=== PATIENT | male | born 1985 | race Caucasian/White ===

== ENCOUNTER 2024-10-21 09:45 | Inpatient (IN) | payer BC, SELFPAY ==
--- NOTE | ~2024-10-21 | CT_ITS ---
Clinical indication:Left elbow swelling, erythema and warmth following a course of IV antibiotics COMPARISON:None TECHNIQUE: Multiple contiguous axial images of the left elbow were performed following the administra tion of intravenous contrast. FINDINGS: A rim-enhancing fluid collection is identified within the soft tissues of the dorsal surface of the l eft elbow (within the expected area of the olecranon bursa) measuring 5.6 x 4.3 x 5.4 cm (anterior to posterior x medial to lateral x cranial to caudal dimension). Significant soft tissue swelling is also noted. No acute fracture or bony erosion is identified. IMPRESSION: Rim-enhancing fluid collection within the expected region of the olecranon bursa of the left elbow me asuring 5.6 cm in greatest dimension. Reviewed, dictated and finalized at location A. IMPRESSION: Rim-enhancing fluid collection within the expected region of the olecranon burs a of the left elbow measuring 5.6 cm in greatest dimension.
[2024-10-21 09:52] VITALS: BP 137/94; PULSE 109; RESP 19; TEMP 36.6; O2SAT 99
--- OUTSIDE RECORDS SUMMARY | 2024-10-21 10:09 | XMS_ITS | Clinical Summary ---
Author Organization [facility] Health Address [address] [place] [address] Care Team Providers Care All Source Collection Manager Name Role Phone Unavailable Primary Care Provider Unavailabl e Social History Tobacco Use Types Packs/Day Years Used Date Smoking Tobacco: Never Assessed Sex and Gender Information Value Date Recorded Sex Assigned at Not on file Legal Sex Male 12:14 AM PST Gender Identity Not on file Sexual Orientation Not on file Plan of Treatment Not on file
--- OUTSIDE RECORDS SUMMARY | 2024-10-21 10:09 | XMS_ITS | Encounter Summary ---
Author Organization [facility] Health Address [address] [place] [address] Care Team Providers Care Chef De Froid Name Role Phone Unavailable Primary Care Provider Unavailabl e Prior Encounters Date Type Department Care Team Description 04/15/2019 Converted 13x Documents [place] [facility] [address], [address] [place] [phone] <No scans attached> 04/15/2019 Converted 13x Documents [facility] [facility] [address] [place] [address] <No scans attached> 04/15/2019 Converted CPS Chart Documents [facility] [address], [address] [place] [phone] <No scans attached> 04/15/2019 Converted CPS Chart Documents [facility] [address] [place] [address] <No scans attached> Plan of Treatment Not on file Procedures Procedure Name Priority Date/Time Associated Diagnosis Comments 14 CEREC CROWN POST Routine 01/30/2015 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 AM 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 14 RECEMENT CROWN Routine 01/30/2015 2:0 0 AM 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 FM BLEACH IN-OFFICE Routine 09/12/2014 2 :00 AM CDT ORAL HYGIENE INSTRUCTIONS Routine 2014 2:00 AM CDT TOPICAL APPLICATION OF FLUORIDE VARNISH Routine 09/12/2014 2:00 AM CDT PROPHYLAXIS - ADULT Routine 09/12/2014 2 :00 AM CDT ORAL HYGIENE INSTRUCTIONS Routine 2013 2:00 AM CDT TOPICAL APPLICATION OF FLUORIDE VARNISH Routine 12/02/2013 2:00 AM CDT PROPHYLAXIS - ADULT Routine 12/02/2013 2 :00 AM CDT 14 CORE BUILDUP, INCLUDING ANY PINS WHEN REQUIRED Routine 12/02/2013 2:00 AM CDT 14 CEMENT CROWN Routine 12/02/2013 2:00 AM CDT 14 CEREC CROWN POST Routine 12/02/2013 2 :00 AM CDT COMPREHENSIVE ORAL EVALUATION - NEW OR ESTABLISHED PATIENT Routine 12/02/2013 2:00 AM CDT NC X-RAY Routine 12/02/2013 2:00 AM CDT PANORAMIC RADIOGRAPHIC IMAGE Routine 12/02/2013 2:00 AM CDT INTRAORAL - COMPREHENSIVE SERIES OF RADIOGRAPHIC IMAGES Routine 12/02/2013 2:00 AM CDT INTRAORAL PHOTO Routine 12/02/2013 2:00 AM CDT INTRAORAL PHOTO Routine 12/02/2013 2:00 AM CDT INTRAORAL PHOTO Routine 12/02/2013 2:00 AM CDT INTRAORAL PHOTO Routine 12/02/2013 2:00 AM CDT 30 O COMPOSITE FILLING Routine 4 2:00 AM CDT 19 O COMPOSITE FILLING Routine 4 2:00 AM CDT 18 O COMPOSITE FILLING Routine 4 2:00 AM CDT 15 O COMPOSITE FILLING Routine 4 2:00 AM CDT 3 O COMPOSITE FILLING Routine 12/02/2013 2:00 AM CDT 2 O COMPOSITE FILLING Routine 12/02/2013 2:00 AM CDT Visit Diagnoses Not on file
--- OUTSIDE RECORDS SUMMARY | 2024-10-21 10:09 | XMS_ITS | Clinical Summary ---
Author Organization [facility] Address [address] [place] [address] Care Team Providers Care Tallow Maker Name Role Phone Unavailable Primary Care Provider Unavailabl e Source Comments [facility],non-owned Affiliates and Associated Physician Practices is amultiple site organization consisting of ambulatory clinics and hospital sitesin [place], [place], [place] and [place]. This disclosure is being madepursuant to the Care Everywhere program and may not contain all information available regarding this patient. Last updated 17.[facility] Allergies No known active allergies Medications * Be aware that medications may not be up to date on this document. Alwaysverify current medications with the patient. 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 Gender Identity Not on file Sexual Orientation Not on file Last Filed Vital Signs Vital Sign Reading Time Taken Comments Blood Pressure 128/80 07/18/2018 3:01 PM CDT Pulse 80 07/18/2018 3:01 PM CDT Temperature 36.7 C (98.1 F) 07/18/2018 3:01 PM CDT Respiratory Rate 16 07/18/2018 3:01 PM CDT Oxygen Saturation 98% 07/18/2018 3:01 PM CDT Inhaled Oxygen Concentration - - Weight 95.3 kg (210 lb) 07/18/2018 3:01 PM CDT Height 185.4 cm (6' 1) 07/18/2018 3:01 PM CDT Body Mass Index 27.71 07/18/2018 3:01 PM CDT Plan of Treatment Health Maintenance Due Date Last Done Comments HIV SCREENING 12/11/2002 HEPATITIS C SCREENING 12/07/2005 DTAP/TDAP/TD VACCINES (1 - Tdap) 12/11/2006 HEPATITIS B VACCINE (1 of 3 - 19+ 3-dose series) 12/11/2006 HPV VACCINE (1 - 3-dose SCDM series) 12/11/2014 COVID-19 VACCINE (1 - 2023-2 5 season) 2023 DEPRESSION SCREENING 03/27/2024 INFLUENZA VACCINE (#1) 2024 ZOSTER VACCINE (1 of 2) 12/11/2037 HIB VACCINE Aged Out No longer eligi ble based on patient's age to complete this topic MENINGOCOCCAL (Group B) VACC INE SHARED DECISION-MAKING Aged Out No longer eligibl e based on patient's age to complete this topic MENINGOCOCCAL GROUPS A/C/Y/W VACCINE Aged Out No longer eligible b ased on patient's age to complete this topic PNEUMOCOCCAL VACCINE Aged Out No long er eligible based on patient's age to complete this topic Insurance [facility]
--- OUTSIDE RECORDS SUMMARY | 2024-10-21 10:09 | XMS_ITS | Continuity of Care Document ---
Author Name [facility] Address [address] [place] [address] Organization [facility] Care Team Providers Care Alternative Education Teacher Name Role Phone [facility] Unavailable Unavailable Problems Problem Status Onset Date Problem Type Date of Resolution Comments Source Administrative reason for encounter (finding) Active Condition
--- OUTSIDE RECORDS SUMMARY | 2024-10-21 10:36 | XMS_ITS | Clinical Summary ---
Author Organization [facility] Address [address] [place] [address] Care Team Providers Care Drag Down Name Role Phone Unavailable Primary Care Provider Unavailabl e Source Comments [facility],non-owned Affiliates and Associated Physician Practices is amultiple site organization consisting of ambulatory clinics and hospital sitesin [place], [place], [place] and [place]. This disclosure is being madepursuant to the Care Everywhere program and may not contain all information available regarding this patient. 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
--- OUTSIDE RECORDS SUMMARY | 2024-10-21 10:36 | XMS_ITS | Clinical Summary ---
Author Organization [facility] Health Address [address] [place] [address] Care Team Providers Care Applied Psychology Chair Name Role Phone Unavailable Primary Care Provider [...]
--- OUTSIDE RECORDS SUMMARY | 2024-10-21 10:36 | XMS_ITS | Encounter Summary ---
Author Organization [facility] Health Address [address] [place] [address] Care Team Providers Care Nuclear Fuel Enrichment Technician Name Role Phone Unavailable Primary Care Provider Unavailabl e Prior Encounters Date Type Department Care Team Description 04/15/2019 Converted 13x Documents [place] [facility] [address], [address] [place] [phone] <No scans attached> 04/15/2019 Converted 13x Documents [facility] [address] [place] [address] <No scans attached> 04/15/2019 Converted CPS Chart Documents [facility] [address] [place] [phone] <No scans attached> 04/15/2019 Converted CPS Chart Documents [facility] [address] [place] [address] <No scans attached> Plan of Treatment Not on file Procedures Procedure Name Priority Date/Time Associated Diagnosis Comments 14 CEREC CROWN POST Routine 01/30/2015 2 :00 AM 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
--- OUTSIDE RECORDS SUMMARY | 2024-10-21 10:36 | XMS_ITS | Continuity of Care Document ---
Author Name [facility] Address [address] [place] [address] Organization [facility] Care Team Providers Care Aquatic Laborer Name Role Phone [facility] Unavailable Unavailable Problems Problem Status Onset Date Problem Type Date of Resolution Comments Source Administrative reason for encounter (finding) Active Condition
--- NOTE | 2024-10-21 10:46 | ECG_ITS ---
Test Date: 2024-10-21 10:53:44 Measurements Intervals [place] Rate: 95 P: 67 DE: 181 QRS: 58 QRSD: 90 T: 56 QT: 320 QTc: 404 Interpretive Statements SINUS RHYTHM No previous ECG available for comparison Electronically Signed On 10-21-2024 12:45:59 CDT by Vernon Calvo M.D.
--- NOTE | 2024-10-21 10:57 | ED.EXTPRO ---
HPI - Extremity Problem General Chief complaint: Extremity Problem,Nontraumatic <Marci Pratt APRN - Last Filed: 10/21/24 14:24> Stated complaint: left elbow redness, edema <Marci Pratt APRN - Last Filed: 10/21/24 14:24> Time Seen by Provider: 10/21/24 09:50 <Marci Pratt APRN - Last Filed: 10/21/24 14:24> History of Present Illness HPI Narrative: Patient is a 38-year-old male who presents to the ER with a left swollen elbow. He reports he was done at [facility] last week when he noticed his left elbow started swelling. Patient went into an ER down there and was diagnosed with cellulitis. He reports he was admitted to the hospital and given IV antibiotics for 3 days. Patient reports he has had intermittent fevers and swelling, although it initially went down with IV abx, the swelling and redness have returned. He reports he has had an ultrasound and x-ray performed on his left elbow at the outside hospital. Patient denies any other medical history relevant to this ER visit. He denies any decreased range of motion in his left wrist or left shoulder, numbness/tingling in his hand, or injury to the site. <Marci Pratt APRN - Last Filed: 10/21/24 14:24> Related Data Home medications: Home Medications ?Medication ?Instructions ?Recorded ?Confirmed ?Last Taken ?Type cetirizine 10 mg tablet 10 mg PO DAILY 10/21/24 10/21/24 Unknown History clindamycin HCl 150 mg capsule 300 mg PO Q8H 10/21/24 10/21/24 10/21/24 History dextroamphetamine-amphetamine 20 20 mg PO DAILY 10/21/24 10/21/24 Unknown History mg tablet <Marci Pratt APRN - Last Filed: 10/21/24 14:24> Allergies/Adverse reactions: Allergies Allergy/AdvReac Type Severity Reaction Status Date / Time No Known Allergies Allergy Verified 10/21/24 10:01 <Marci Pratt APRN - Last Filed: 10/21/24 14:24> Review of Systems Review of Systems: All systems reviewed & are unremarkable except as noted in HPI and below <Marci Pratt APRN - Last Filed: 10/21/24 14:24> [facility] Past Medical History Medical History: Medical History (Updated 10/21/24 @ 16:19 by YANELIS Boateng) Cellulitis of upper extremity Olecranon bursitis, left elbow Bursitis Cellulitis ADHD <Marci Pratt APRN - Last Filed: 10/21/24 14:24> Social History Social History: Social History Smoking status: Never smoker Alcohol intake: never Substance use: never Lack of Transportation: No Lack of Food: Never True Current Housing: I Have Housing Concerned About Future Housing: No Difficulty Paying Gas/Electric Bills: No Difficulty Paying for Meds: No Currently Unemployed: No Education: Trade/Vocational Certificate Difficulty w/ Childcare or Family Care: No Spiritual care concerns: No <Marci Pratt APRN - Last Filed: 10/21/24 14:24> Exam Narrative: GENERAL: Well appearing, well-nourished, non-toxic, in no acute distress. HEAD: Normocephalic, atraumatic. NECK: Supple. No adenopathy, no masses. RESPIRATORY: Airway patent, respirations nonlabored. Clear to auscultation bilaterally, no rales, rhonchi, wheezing. CARDIOVASCULAR: Regular rate and rhythm without murmurs, rubs, or gallops. Peripheral pulses 2+ and equal bilaterally. ABDOMINAL: Soft, nontender, nondistended, no hepatosplenomegaly. Normoactive BS. MUSCULOSKELETAL: Moves all extremities. Strength/ROM intact without gross deformities. Left elbow swollen, difficulty extending arm, significant redness and warmth to the site, no open areas, palpable fluid under skin SKIN: Warm, dry, normal color. No rashes. NEURO: A&O X3. Speech clear. Cranial nerves II-XII intact. No ataxic movements. PSYCHIATRIC: Appropriate mood and affect. Normal interaction. <Marci Pratt APRN - Last Filed: 10/21/24 14:24> Course INSTRUCTIONAL TECHNOLOGY TEACHER/PA Physician Supervision For this patient encounter, I reviewed the INSTRUCTIONAL TECHNOLOGY TEACHER or PA documentation, treatment plan, and medical decision making; and I had [id number] time with this patient. <Vega Chavis MD - Last Filed: 10/21/24 18:50> Vital Signs Vital signs: Vital Signs Temperature 97.8 F 10/21/24 09:52 Pulse Rate 109 H 10/21/24 09:52 Respiratory Rate 19 10/21/24 09:52 Blood Pressure 137/94 H 10/21/24 09:52 Pulse Oximetry 99 10/21/24 09:52 Oxygen Delivery Room Air 10/21/24 09:52 Temperature 99.1 F 10/21/24 16:34 Pulse Rate 87 10/21/24 16:34 Respiratory Rate 16 10/21/24 16:34 Blood Pressure 130/82 10/21/24 16:34 Pulse Oximetry 97 10/21/24 16:34 Oxygen Delivery Room Air 10/21/24 09:52 <Marci Pratt, CIVIL PROCESS SERVER - Last Filed: 10/21/24 14:24> Vital Signs Temperature 97.8 F 10/21/24 09:52 Pulse Rate 109 H 10/21/24 09:52 Respiratory Rate 19 10/21/24 09:52 Blood Pressure 137/94 H 10/21/24 09:52 Pulse Oximetry 99 10/21/24 09:52 Oxygen Delivery Room Air 10/21/24 09:52 Temperature 99.1 F 10/21/24 16:34 Pulse Rate 87 10/21/24 16:34 Respiratory Rate 16 10/21/24 16:34 Blood Pressure 130/82 10/21/24 16:34 Pulse Oximetry 97 10/21/24 16:34 Oxygen Delivery Room Air 10/21/24 09:52 <Vega Chavis MD - Last Filed: 10/21/24 18:50> MDM - Extremity (Nontraumatic) MDM Narrative Medical decision making narrative: Patient is a 38-year-old male who presents to the ER with a left swollen elbow. He reports he was done at [facility] last week when he noticed his left elbow started swelling. Patient went into an ER down there and was diagnosed with cellulitis. He reports he was admitted to the hospital and given IV antibiotics for 3 days. Patient reports he has had intermittent fevers and swelling, although it initially went down with IV abx, the swelling and redness have returned. He reports he has had an ultrasound and x-ray performed on his left elbow at the outside hospital. Patient denies any other medical history relevant to this ER visit. He denies any decreased range of motion in his left wrist or left shoulder, numbness/tingling in his hand, or injury to the site. Labs Ordered: CBC, CMP, lactic acid, CRP, PTT, INR Imaging Ordered: CT left elbow (patient reports he had an ultrasound and x-ray at outside facility) Medications Ordered: 3 L normal saline IV bolus, morphine 4 mg IV, Ancef 1 g IV Results: Patient's CT scan indicates A rim-enhancing fluid collection is identified within the soft tissues of the dorsal surface of the left elbow (within the expected area of the olecranon bursa) measuring 5.6 x 4.3 x 5.4 cm (anterior to posterior x medial to lateral x cranial to caudal dimension). Significant soft tissue swelling is also noted. No acute fracture or bony erosion is identified. Diagnosis: Left elbow bursitis, left elbow cellulitis, septic joint Consults: [id number]-spoke with Orthopedic surgery, nurse practitioner, who reports their service will consult on patient once he is admitted to the hospital. [id number]-spoke with hospitalistArpita NP, who is in agreement with plan for admission. Patient will be admitted to the med/surg floor with IV antibiotics. <Marci Pratt APRN - Last Filed: 10/21/24 14:24> Differential Diagnosis Differential diagnosis: Likely cellulitis and other (Septic joint, bursitis, abscess) <Marci Pratt APRN - Last Filed: 10/21/24 14:24> Lab Data Result diagrams: 10/21/24 11:15 10/21/24 11:15 <Marci Pratt APRN - Last Filed: 10/21/24 14:24> Labs: Lab Results 10/21/24 Range/Units 11:15 WBC 12.7 H (4.5-10.0) K/mm3 RBC 4.85 (4.6-6.20) M/mm3 Hgb 14.4 (14.0-18.0) g/dL Hct 42.0 (42.0-52.0) % MCV 86.6 (80-100) fl MCH 29.7 (26-34) pg MCHC 34.3 (32-36) g/dl RDW 12.0 (11.5-14.5) % Plt Count 244 (150-375) k/mm3 MPV 7.9 (7.4-10.4) fl Immature Gran % (Auto) 1.7 H (0-0.5) % Neut % (Auto) 77.3 H (45.5-73.1) % Lymph % (Auto) 8.4 L (18.3-44.2) % Wilcox % (Auto) 9.0 H (2.6-8.5) % Eos % (Auto) 3.2 (0-4.4) % Baso % (Auto) 0.4 (0.2-1.2) % Lymph # (Auto) 1.07 (0.9-3.2) K/mm3 Wilcox # (Auto) 1.1 H (0.1-0.6) K/mm3 Eos # (Auto) 0.4 H (0-0.3) K/mm3 Baso # (Auto) 0.1 (0.0-0.1) K/mm3 Abs Immat Gran (auto) 0.21 H (0.00-0.031) K/mm3 Absolute Neuts (auto) 9.8 H (1.3-6.7) K/mm3 Absolute Nucleated RBC 0.000 (0.0-0.012) K/mm3 Nucleated RBC % 0.0 (0.0-0.2) % PT 13.7 (11.1-14.7) Seconds INR 1.0 APTT 33.4 (22.3-36.8) Seconds Sodium 138 (137-145) mmol/L Potassium 3.7 (3.4-5.0) mmol/L Chloride 98 (98-107) mmol/L Carbon Dioxide 29 (22-30) mmol/L Anion Gap 11 (4-12) mmol/L BUN 9 (9-20) mg/dL Creatinine 0.75 (0.7-1.3) mg/dL Estim Creat Clear Calc 133 ml/min Estimated GFR > 60 (59 - ) Glucose 104 (65-110) mg/dL Lactic Acid 1.4 (0.7-2.0) mmol/L Calcium 9.4 (8.4-10.2) mg/dL Total Bilirubin 0.4 (0.2-1.3) mg/dL AST 29 (17-59) U/L ALT 39 (6-50) U/L Alkaline Phosphatase 78 (38-126) U/L C-Reactive Protein 11.5 H (<1.0) mg/dL Total Protein 8.2 (6.3-8.2) g/dL Albumin 4.3 (3.5-5.1) g/dL <Marci Pratt, CIVIL PROCESS SERVER - Last Filed: 10/21/24 14:24> Lab Results 10/21/24 Range/Units 11:15 WBC 12.7 H (4.5-10.0) K/mm3 RBC 4.85 (4.6-6.20) M/mm3 Hgb 14.4 (14.0-18.0) g/dL Hct 42.0 (42.0-52.0) % MCV 86.6 (80-100) fl MCH 29.7 (26-34) pg MCHC 34.3 (32-36) g/dl RDW 12.0 (11.5-14.5) % Plt Count 244 (150-375) k/mm3 MPV 7.9 (7.4-10.4) fl Immature Gran % (Auto) 1.7 H (0-0.5) % Neut % (Auto) 77.3 H (45.5-73.1) % Lymph % (Auto) 8.4 L (18.3-44.2) % Wilcox % (Auto) 9.0 H (2.6-8.5) % Eos % (Auto) 3.2 (0-4.4) % Baso % (Auto) 0.4 (0.2-1.2) % Lymph # (Auto) 1.07 (0.9-3.2) K/mm3 Wilcox # (Auto) 1.1 H (0.1-0.6) K/mm3 Eos # (Auto) 0.4 H (0-0.3) K/mm3 Baso # (Auto) 0.1 (0.0-0.1) K/mm3 Abs Immat Gran (auto) 0.21 H (0.00-0.031) K/mm3 Absolute Neuts (auto) 9.8 H (1.3-6.7) K/mm3 Absolute Nucleated RBC 0.000 (0.0-0.012) K/mm3 Nucleated RBC % 0.0 (0.0-0.2) % PT 13.7 (11.1-14.7) Seconds INR 1.0 APTT 33.4 (22.3-36.8) Seconds Sodium 138 (137-145) mmol/L Potassium 3.7 (3.4-5.0) mmol/L Chloride 98 (98-107) mmol/L Carbon Dioxide 29 (22-30) mmol/L Anion Gap 11 (4-12) mmol/L BUN 9 (9-20) mg/dL Creatinine 0.75 (0.7-1.3) mg/dL Estim Creat Clear Calc 133 ml/min Estimated GFR > 60 (59 - ) Glucose 104 (65-110) mg/dL Lactic Acid 1.4 (0.7-2.0) mmol/L Calcium 9.4 (8.4-10.2) mg/dL Total Bilirubin 0.4 (0.2-1.3) mg/dL AST 29 (17-59) U/L ALT 39 (6-50) U/L Alkaline Phosphatase 78 (38-126) U/L C-Reactive Protein 11.5 H (<1.0) mg/dL Total Protein 8.2 (6.3-8.2) g/dL Albumin 4.3 (3.5-5.1) g/dL <Vega Chavis MD - Last Filed: 10/21/24 18:50> Discharge Plan Discharge Clinical Impression: Cellulitis, Bursitis Septic joint of left elbow Qualifiers: Septic arthritis organism: due to unspecified organism Qualified Code(s): M00.9 - Pyogenic arthritis, unspecified <Marci Pratt APRN - Last Filed: 10/21/24 14:24> Patient Disposition: Still a Patient <Marci Pratt APRN - Last Filed: 10/21/24 14:24> Condition: Stable <Marci Pratt APRN - Last Filed: 10/21/24 14:24>
[2024-10-21 11:27] LABS: Hematocrit 42.0 % (42.0-52.0); Hemoglobin 14.4 g/dL (14.0-18.0); Immature Granulocyte Percent A 1.7 % (0-0.5); Lymphocytes Absolute Auto 1.07 K/mm3 (0.9-3.2); Mean Corpuscular HGB Conc 34.3 g/dl (32-36); Mean Corpuscular Hemoglobin 29.7 pg (26-34); Mean Corpuscular Volume 86.6 fl (80-100); Nucleated Red Blood Cells Absolute Auto 0.000 K/mm3 (0.0-0.012); Nucleated Red Blood Cells Perc 0.0 % (0.0-0.2); Platelet Count Result 244 k/mm3 (150-375); Red Blood Count 4.85 M/mm3 (4.6-6.20); White Blood Count 12.7 K/mm3 (4.5-10.0)
[2024-10-21] MEDS: SODIUM CHLORIDE 0.9% IV 1,000 ML 999 ML IV CONT ×3 (11:41→11:42)
[2024-10-21 11:43] LABS: INR 1.0; Prothrombin Time 13.7 Seconds (11.1-14.7)
[2024-10-21 11:44] LABS: Partial Thromboplastin Time 33.4 Seconds (22.3-36.8)
[2024-10-21 11:48] LABS: Alanine Aminotransferase 39 U/L (6-50); Albumin Level 4.3 g/dL (3.5-5.1); Alkaline Phosphatase 78 U/L (38-126); Anion Gap 11 mmol/L (4-12); Aspartate Amino Transferase 29 U/L (17-59); Bilirubin,Total 0.4 mg/dL (0.2-1.3); Blood Urea Nitrogen 9 mg/dL (9-20); Calcium 9.4 mg/dL (8.4-10.2); Carbon Dioxide 29 mmol/L (22-30); Chloride 98 mmol/L (98-107); Estimated CRCL calculation 133 ml/min; Estimated Glomerular Filt Rate > 60; Glucose 104 mg/dL (65-110); Potassium 3.7 mmol/L (3.4-5.0); Sodium 138 mmol/L (137-145); Total Protein 8.2 g/dL (6.3-8.2)
[2024-10-21 12:14] LABS: CRP 11.5 mg/dL (<1.0)
[2024-10-21] MEDS: ceFAZolin 1 GM in SODIUM CHLORIDE 0.9% IV 50 ML 100 ML IVPB (12:16)
[2024-10-21 13:41] VITALS: BP 125/91; PULSE 75; RESP 16; O2SAT 100
[2024-10-21] MEDS: MORPHINE SULFATE (*CRX) 4 MG/ML INJ IV PUSH ×3 (14:02→21:22)
[2024-10-21] MEDS: SODIUM CHLORIDE 0.9% IV 1,000 ML 125 ML IV CONT (14:34)
--- NOTE | 2024-10-21 14:42 | P.HP_ITS ---
H&P: HPI History of Present Illness Date/Time: 10/21/24 14:42 Chief Complaint: Left Elbow Swelling Narrative: 38 y/o M with PMH of ADHD presents here with left elbow swelling and redness. The patient presents here from home for further evaluation of left yarsanism swelling and redness. He reports onset approximately 7 days ago while he was at [facility]. Initially started with swelling and pain. Swelling continued to worsen and he developed erythema. He went to an emergency department in [facility] where he was admitted for 3 days, during which he received IV vancomycin. He was discharged with oral clindamycin. Culture was performed at that time. Patient believes it was not MRSA. Despite antibiotic use and compliance he reports the swelling has not improved and the erythema has wor sened. Elbow remains tender to the touch. The symptoms are now also accompanied by intermittent diaphoresis and a low-grade temperature - 100.3? F. Initial VS at presentation: 97.8? F, HR 109, R 19, 137/94, and 99% on RA. ED workup showed: WBC 12.7, no anemia, normal coags, no significant electrolyte derangements, lactic 1.4, CRP 11.5. Elbow CT showed a rim enhancing fluid collection, 5.6 x 4.3 x 5.4 cm, within the expected region of the olecranon bursa of the left elbow. Review of Systems Review of Systems: All systems reviewed & are unremarkable except as noted in HPI and below PMFSH Past Medical History Medical History (Updated 10/21/24 @ 23:03 by Arpita Lemons APRN) Cellulitis of upper extremity Olecranon bursitis, left elbow ADHD Social History Social History Smoking status: Never smoker Alcohol intake: never Substance use: never Lack of Transportation: No Lack of Food: Never True Current Housing: I Have Housing Concerned About Future Housing: No Difficulty Paying Gas/Electric Bills: No Difficulty Paying for Meds: No Currently Unemployed: No Education: Trade/Vocational Certificate Difficulty w/ Childcare or Family Care: No Spiritual care concerns: No Meds Home Medications and Allergies Home Medications ?Medication ?Instructions ?Recorded ?Confirmed ?Type cetirizine 10 mg tablet 10 mg PO DAILY 10/21/24 10/21/24 History clindamycin HCl 150 mg capsule 300 mg PO Q8H 10/21/24 10/21/24 History dextroamphetamine-amphetamine 20 20 mg PO DAILY 10/21/24 10/21/24 History mg tablet Allergies Allergy/AdvReac Type Severity Reaction Status Date / Time No Known Allergies Allergy Verified 10/21/24 10:01 Vital Signs Vital Signs - 24 hr 10/21/24 09:52 10/21/24 13:41 Temperature 97.8 F Pulse Rate 109 H 75 Respiratory Rate 19 16 Blood Pressure 137/94 H 125/91 H Pulse Oximetry 99 100 Oxygen Delivery Room Air Exam Const: General: comfortable and no acute distress Other: , male, nontoxic appearance HENMT: Face/Nose/Sinus: Normal nares present Mouth: Yes moist mucous membranes Eyes: General: appearance normal, both eyes and all related structures Sclera: sclerae normal Pupils: Equal, round and reactive pupils present EOM: EOMs intact bilaterally Resp: Effort & Inspection: normal respiratory effort Auscultation: clear to auscultation bilaterally Cardio: Rate: regular rate Rhythm: regular rhythm Other: S1-S2 present without murmur, rub, ectopy GI: Other: Abdomen soft, nondistended, nontender. Normoactive bowel sounds in all quadrants. Skin: Other: Mild erythema to the left elbow, boggy near the olecranon process with moderate edema. Reporting improved ROM. Neuro: Speech: normal speech Motor exam (neuro): 5/5 motor strength present throughout Sensory Exam: normal sensation Other: A&O x4 Extrem: General: normal to inspection Psych: Mental Status: mental status grossly normal Affect: normal affect Other: Good insight and judgment, very pleasant H&P: Results Labs Labs: Short CBC 10/21/24 Range/Units 11:15 WBC 12.7 H (4.5-10.0) K/mm3 Hgb 14.4 (14.0-18.0) g/dL Hct 42.0 (42.0-52.0) % Plt Count 244 (150-375) k/mm3 [facility] 10/21/24 11:15 Sodium 138 Potassium 3.7 Chloride 98 Carbon Dioxide 29 BUN 9 Creatinine 0.75 Glucose 104 Calcium 9.4 Liver Function 10/21/24 Range/Units 11:15 Total Bilirubin 0.4 (0.2-1.3) mg/dL AST 29 (17-59) U/L ALT 39 (6-50) U/L Alkaline Phosphatase 78 (38-126) U/L Albumin 4.3 (3.5-5.1) g/dL Assessment and Plan Assessment and plan (1) Sepsis: Qualifiers: Sepsis acute organ dysfunction status: without acute organ dysfunction Sepsis type: sepsis due to unspecified organism Qualified Code(s): A41.9 - Sepsis, unspecified organism Code(s): A41.9 - Sepsis, unspecified organism Status: Acute Assessment and Plan: - meets SIRS criteria: HR greater than 90, WBC greater than 12 - lactic acid: 1.4 - 30 mL/kg = 2.9L, 3L bolus in ED given -> 125 mL/hour x1L - suspected source: Septic elbow/cellulitis - started on vancomycin - blood cultures drawn on 10/21 (2) Septic joint of left elbow: Qualifiers: Septic arthritis organism: due to unspecified organism Qualified Code(s): M00.9 - Pyogenic arthritis, unspecified Code(s): M00.9 - Pyogenic arthritis, unspecified Status: Acute Assessment and Plan: - CT elbow, 10/21: Rim-enhancing fluid collection within the expected region of the olecranon bursa of the left elbow measuring 5.6 x 4.3 x 5.4 cm (anterior to posterior x medial to lateral x cranial to caudal dimension). - orthopedics consulted -> repeat aspiration of the left elbow olecranon bursa for new stat Gram stain, culture and fluid analysis. 15 mL withdrawn and patient now reporting improved pain/improved range of motion. - fluid culture from the OSH showed staphylococci, final result pending - fluid culture ordered - started on Ancef, will exchanged to vancomycin - analgesics and antipyretics p.r.n. Plan Diet: Regular GI Prophylaxis: n/a DVT Prophylaxis: SCDs IV fluids: 3L bolus in ED given -> 125 mL/hour x1L Lines/Tubes: Peripheral IV Code Status: Full code Quality VTE Prophylaxis VTE prophylaxis: mechanical ordered Hospitalist MIPS Advance Care Plan I have confirmed that the patient's Advanced Care Plan is present, code status is documented, or surrogate decision maker is listed in patient medical record.: Yes Medication Reconciliation I have utilized all available resources to obtain, update and review the patients current medications (includes all prescriptions, OTC, herbals, cannabis, and nutritional supplements).: Yes
[2024-10-21] MEDS: VANCOMYCIN 1,250 MG/NS 250 ML 1,250 MG/250 ML BAG 166.67 MG IVPB ×2 (15:41→17:42)
[2024-10-21 16:03] VITALS: BP 153/81; PULSE 109; RESP 18; O2SAT 98
--- NOTE | 2024-10-21 16:12 | PM.CNOR ---
Assessment and Plan Assessment and plan (1) Olecranon bursitis, left elbow: Code(s): M70.22 - Olecranon bursitis, left elbow <YANELIS Boateng - Last Filed: 10/21/24 16:27> Status: Acute <YANELIS Boateng - Last Filed: 10/21/24 16:27> Assessment and Plan: History, exam and CT scan reviewed with the patient and his at the bedside. Outside hospital medical records reviewed as well. As previously indicated, preliminary results from previous aspiration of the left elbow revealed staphylococci. Per the patient and family this was not MRSA however, the records do not indicate a final result. Blood cultures from the outside hospital were negative. CT scan of the left elbow reveals rim-enhancing fluid collection within the expected region of the olecranon bursa of the left elbow measuring 5.6 cm in greatest dimension. surrounding tissue with redness, warmth and swelling indicative of cellulitis. Discussed condition, nature, etiology and course of natural history. Conservative and operative treatment options reviewed as well as the risks and benefits of each. Recommended repeat aspiration of the left elbow olecranon bursa for new stat Gram stain, culture and fluid analysis. Patient and at the bedside agree with plan of care. Consent obtained. See procedure note for details. Dressing in place at this time. Continue IV antibiotics under the direction of the hospitalist service. Limit weight-bearing of the left upper extremity. Ice, elevation. Pain control. We will continue to monitor and determine further need for surgical versus conservative treatment pending re-evaluation tomorrow. <YANELIS Boateng - Last Filed: 10/21/24 16:27> (2) Cellulitis of upper extremity: Qualifiers: Laterality: left Qualified Code(s): L03.114 - Cellulitis of left upper limb <YANELIS Boateng - Last Filed: 10/21/24 16:27> Code(s): L03.119 - Cellulitis of unspecified part of limb <YANELIS Boateng - Last Filed: 10/21/24 16:27> Status: Acute <YANELIS Boateng - Last Filed: 10/21/24 16:27> Assessment and Plan: Continue IV antibiotics. <YANELIS Boateng - Last Filed: 10/21/24 16:27> (3) Septic olecranon bursitis of left elbow: Code(s): M71.122 - Other infective bursitis, left elbow <YANELIS Boateng - Last Filed: 10/21/24 16:27> Status: Acute <YANELIS Boateng - Last Filed: 10/21/24 16:27> Assessment and Plan: [place]: consult reviewed. CT scan reviewed. Agree with aspiration. <Brad Alanis MD - Last Filed: 10/22/24 09:39> Assessment and Plan: Reviewed history, exam, radiographs and current labs with attending MD and covering surgeon, Dr. Alanis, who agrees with current plan as indicated above. No further recommendations from Dr. Alanis at this time. <YANELIS Boateng - Last Filed: 10/21/24 16:27> History of Present Illness HPI Consult date: 10/21/24 <YANELIS Boateng - Last Filed: 10/21/24 16:27> 10/22/24 <Brad Alanis MD - Last Filed: 10/22/24 09:39> Requesting physician: Marci Pratt APRN <YANELIS Boateng - Last Filed: 10/21/24 16:27> Chief complaint: bursitis,cellulitis,spetic joint <YANELIS Boateng - Last Filed: 10/21/24 16:27> Narrative: 38-year-old male presented to the emergency room today with complaints of left elbow pain, swelling and fever /chills. Patient was recently admitted to an outside hospital on 10/18 with complaints of left elbow swelling and pain. 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 He denies any known injury or laceration to the left elbow prior to the onset of symptoms. He notes that it was initially swollen without erythema. Per medical records from the OSH, he was found to have an abscess in the left olecranon bursa which, at that time, measured 4.4 cm x 1.8 cm x 3.7 cm. He had an aspiration of this abscess which grew Staphylococcus. He was treated with IV antibiotics On 10/18 in 726 and then discharged home on oral antibiotics with clindamycin 300 mg every 6 hours for 10 days. Per the patient and his , he has been taking the antibiotics as directed on 10/20 and today however he noticed increased redness, warmth and swelling and continued to have fevers and chills. He is now presenting to the emergency room for further evaluation. New CT scan was obtained of the left elbow which reveals a rim-enhancing fluid collection within the expected region of the olecranon bursa of the left elbow measuring 5.6 cm in greatest dimension. He has been started on Ancef and vancomycin an orthopedic consult requested by the emergency room physician. <YANELIS Boateng - Last Filed: 10/21/24 16:27> Review of Systems Review of Systems: All systems reviewed & are unremarkable except as noted in HPI and below <YANELIS Boateng - Last Filed: 10/21/24 16:27> [facility] Past Medical History Medical History: Medical History (Updated 10/22/24 @ 09:37 by Brad Alanis MD) Septic olecranon bursitis of left elbow Cellulitis of upper extremity Olecranon bursitis, left elbow ADHD <YANELIS Boateng - Last Filed: 10/21/24 16:27> Social History Social History: Social History Smoking status: Never smoker Alcohol intake: never Substance use: never Lack of Transportation: No Lack of Food: Never True Current Housing: I Have Housing Concerned About Future Housing: No Difficulty Paying Gas/Electric Bills: No Difficulty Paying for Meds: No Currently Unemployed: No Education: Trade/Vocational Certificate Difficulty w/ Childcare or Family Care: No Spiritual care concerns: No <YANELIS Boateng - Last Filed: 10/21/24 16:27> Meds Home Medications and Allergies Home medications: Home Medications ?Medication ?Instructions ?Recorded ?Confirmed ?Type cetirizine 10 mg tablet 10 mg PO DAILY 10/21/24 10/21/24 History clindamycin HCl 150 mg capsule 300 mg PO Q8H 10/21/24 10/21/24 History dextroamphetamine-amphetamine 20 20 mg PO DAILY 10/21/24 10/21/24 History mg tablet <VICTORINO BoatengP - Last Filed: 10/21/24 16:27> Allergies/Adverse reactions: Allergies Allergy/AdvReac Type Severity Reaction Status Date / Time No Known Allergies Allergy Verified 10/21/24 10:01 <VICTORINO BoatengP - Last Filed: 10/21/24 16:27> Vital Signs Vital Signs - 24 hr 10/21/24 09:52 10/21/24 13:41 10/21/24 16:03 Temperature 36.6 C Pulse Rate 109 H 75 109 H Respiratory Rate 19 16 18 Blood Pressure 137/94 H 125/91 H 153/81 H Pulse Oximetry 99 100 98 Oxygen Delivery Room Air <VICTORINO BoatengP - Last Filed: 10/21/24 16:27> Exam Const: General: comfortable and no acute distress <VICTORINO BoatengP - Last Filed: 10/21/24 16:27> HENMT: Mouth: Yes moist mucous membranes <VICTORINO BoatengP - Last Filed: 10/21/24 16:27> Eyes: General: appearance normal, both eyes and all related structures <VICTORINO BoatengP - Last Filed: 10/21/24 16:27> Neck: Neck: supple and no JVD <VICTORINO BoatengP - Last Filed: 10/21/24 16:27> Resp: Effort & Inspection: normal respiratory effort <VICTORINO BoatengP - Last Filed: 10/21/24 16:27> Cardio: Rate: regular rate <VICTORINO BoatengP - Last Filed: 10/21/24 16:27> Rhythm: regular rhythm <VICTORINO BoatengP - Last Filed: 10/21/24 16:27> GI: Inspection: non-distended <VICTORINO BoatengP - Last Filed: 10/21/24 16:27> GI Palp: Yes Soft to palpation and No Tenderness to palpation present (GI) <VICTORINO BoatengP - Last Filed: 10/21/24 16:27> Neuro: General: gait normal <VICTORINO BoatengP - Last Filed: 10/21/24 16:27> Cognition (Neuro): normal cognition <VICTORINO BoatengP - Last Filed: 10/21/24 16:27> Speech: normal speech <Eugenia Wilkes [facility] - Last Filed: 10/21/24 16:27> Extrem: Left upper extremity: normal capillary refill, shoulder/upper arm inspection abnormal, tenderness of the mid-shaft humerus, axillary nerve sensory function normal, normal ROM and warmth; no abrasions and no lacerations, elbow/forearm abnormal to inspection erythema and olecranon swelling, tenderness of the olecranon, of the lateral epicondyle, of the mid-shaft forearm and of the medial epicondyle, swelling of the olecranon, of the lateral epicondyle, of the mid-shaft forearm and of the proximal forearm, abnormal ROM pain with active ROM with extension, with flexion, with pronation and with supination and pain with passive ROM with extension, with flexion, with pronation and with supination and distal pulses intact; no foreign bodies and no penetrating wound, wrist normal to inspection and hand normal to inspection, normal capillary refill, neuromotor exam normal, neurosensory exam normal, vascular exam radial pulse present, normal ROM of fingers and swelling ( Mild); no tenderness <VICTORINO BoatengP - Last Filed: 10/21/24 16:27> Psych: Mental Status: mental status grossly normal <Eugenia Wilkes [facility] - Last Filed: 10/21/24 16:27> Affect: normal affect <Eugenia Wilkes [facility] - Last Filed: 10/21/24 16:27> Results Labs Result Diagrams: 10/22/24 06:21 10/22/24 06:21 <Eugenia Wilkes [facility] - Last Filed: 10/21/24 16:27> Labs: Abnormal lab results 10/21/24 Range/Units 11:15 WBC 12.7 H (4.5-10.0) K/mm3 Immature Gran % (Auto) 1.7 H (0-0.5) % Neut % (Auto) 77.3 H (45.5-73.1) % Lymph % (Auto) 8.4 L (18.3-44.2) % Mckenzie % (Auto) 9.0 H (2.6-8.5) % Mckenzie # (Auto) 1.1 H (0.1-0.6) K/mm3 Eos # (Auto) 0.4 H (0-0.3) K/mm3 Abs Immat Gran (auto) 0.21 H (0.00-0.031) K/mm3 Absolute Neuts (auto) 9.8 H (1.3-6.7) K/mm3 C-Reactive Protein 11.5 H (<1.0) mg/dL H & H 10/21/24 Range/Units 11:15 Hgb 14.4 (14.0-18.0) g/dL Hct 42.0 (42.0-52.0) % Coagulation 10/21/24 Range/Units 11:15 INR 1.0 All other labs normal. <YANELIS Boateng - Last Filed: 10/21/24 16:27> Joint Aspiration & Injection Pre-Procedure Pre-procedure care: Consent was obtained, Procedures/risks were explained, Questions were answered, Correct patient identified and Correct side and site confirmed <YANELIS Boateng - Last Filed: 10/21/24 16:27> Post Procedure Patient tolerated the procedure well?: Tolerated procedure well <YANELIS Boateng - Last Filed: 10/21/24 16:27> Position Position: Sitting <YANELIS Boateng - Last Filed: 10/21/24 16:27> Location: left <YANELIS Boateng - Last Filed: 10/21/24 16:27> Site Prepped Technique: sterile technique <YANELIS Boateng - Last Filed: 10/21/24 16:27> Anesthetic: lidocaine 1% plain <YANELIS Boateng - Last Filed: 10/21/24 16:27> Fluid: Purulent <YANELIS Boateng - Last Filed: 10/21/24 16:27> Fluid Withdrawn (mL): 15 <YANELIS Boateng - Last Filed: 10/21/24 16:27> Sterile Dressing Sterile Dressing: Adhesive <YANELIS Boateng - Last Filed: 10/21/24 16:27> ELBOW Elbow Procedure: bursa Manual palpation <YANELIS Boateng - Last Filed: 10/21/24 16:27>
[2024-10-21 16:14] VITALS: BMI 28.4
[2024-10-21 16:34] VITALS: BP 130/82; PULSE 87; RESP 16; TEMP 37.3; O2SAT 97
[2024-10-21 16:58] LABS: Color Synovial Fluid Red (Colorless); Source Synovial Fluid Lt Elbow Syn Fluid
[2024-10-21 16:59] LABS: Lymphocytes Synovial Fluid 2 %; Macrophages Synovial Fluid 1 %; Monocytes Synovial Fluid 13 %; Neutrophils Synovial Fluid 84 % (0-25)
[2024-10-21] MEDS: HYDROcodone/acetaminophen (*CRX) 5-325 MG TABLET 1 TAB PO ×2 (17:41→22:38)
[2024-10-21 21:31] VITALS: BP 146/82; PULSE 101; RESP 20; TEMP 36.4; O2SAT 100
[2024-10-22] MEDS: MORPHINE SULFATE (*CRX) 4 MG/ML INJ IV PUSH ×4 (03:20→18:18)
[2024-10-22] MEDS: VANCOMYCIN 1,500 MG/NS 500 ML 1,500 MG/500 ML BAG 250 MG IVPB ×2 (03:50→15:31)
[2024-10-22 06:00] VITALS: BP 132/81; PULSE 83; RESP 20; TEMP 35.9; O2SAT 97
[2024-10-22] MEDS: HYDROcodone/acetaminophen (*CRX) 5-325 MG TABLET 1 TAB PO ×3 (06:01→20:16)
[2024-10-22 06:45] LABS: Hematocrit 39.4 % (42.0-52.0); Hemoglobin 13.3 g/dL (14.0-18.0); Immature Granulocyte Percent A 2.6 % (0-0.5); Lymphocytes Absolute Auto 1.17 K/mm3 (0.9-3.2); Mean Corpuscular HGB Conc 33.8 g/dl (32-36); Mean Corpuscular Hemoglobin 29.5 pg (26-34); Mean Corpuscular Volume 87.4 fl (80-100); Nucleated Red Blood Cells Absolute Auto 0.000 K/mm3 (0.0-0.012); Nucleated Red Blood Cells Perc 0.0 % (0.0-0.2); Platelet Count Result 205 k/mm3 (150-375); Red Blood Count 4.51 M/mm3 (4.6-6.20); White Blood Count 11.8 K/mm3 (4.5-10.0)
[2024-10-22 07:14] LABS: Anion Gap 9 mmol/L (4-12); Blood Urea Nitrogen 7 mg/dL (9-20); CRP 8.1 mg/dL (<1.0); Calcium 8.9 mg/dL (8.4-10.2); Carbon Dioxide 26 mmol/L (22-30); Chloride 103 mmol/L (98-107); Estimated CRCL calculation 146 ml/min; Estimated Glomerular Filt Rate > 60; Glucose 91 mg/dL (65-110); Potassium 4.0 mmol/L (3.4-5.0); Sodium 138 mmol/L (137-145)
[2024-10-22] MEDS: LORATADINE 10 MG TABLET PO (09:23)
--- NOTE | 2024-10-22 09:51 | PM.PNORT ---
Progress Note: A&P Assessment and Plan (1) Septic olecranon bursitis of left elbow: Code(s): M71.122 - Other infective bursitis, left elbow Status: Acute Assessment and Plan: Left elbow aspiration yesterday. Noted improvement in pain and swelling. Improved white count. Awaiting culture results. Still with some fluctuance on exam. May consider repeat aspiration with serial aspirations. Continue empiric antibiotics. Operative and non operative treatment reviewed with the patient. He would prefer to avoid surgery if possible. Subjective Subjective Date/Time Seen: 10/22/24 09:51 Principal diagnosis: Left elbow septic bursitis Interval history: patient states pain and swelling improved today. No problems overnight. Exam Const: General: comfortable and no acute distress Neck: Neck: supple and no JVD Resp: Effort & Inspection: normal respiratory effort Neuro: General: gait normal Cognition (Neuro): normal cognition Speech: normal speech Extrem: Left upper extremity: normal capillary refill, shoulder/upper arm inspection abnormal, tenderness of the mid-shaft humerus, axillary nerve sensory function normal, normal ROM and warmth; no abrasions and no lacerations, elbow/forearm abnormal to inspection erythema and olecranon swelling, tenderness of the olecranon, of the lateral epicondyle, of the mid-shaft forearm and of the medial epicondyle, swelling of the olecranon, of the lateral epicondyle, of the mid-shaft forearm and of the proximal forearm, abnormal ROM pain with active ROM with extension, with flexion, with pronation and with supination and pain with passive ROM with extension, with flexion, with pronation and with supination and distal pulses intact; no foreign bodies and no penetrating wound, wrist normal to inspection and hand normal to inspection, normal capillary refill, neuromotor exam normal, neurosensory exam normal, vascular exam radial pulse present, normal ROM of fingers and swelling ( Mild); no tenderness Psych: Mental Status: mental status grossly normal Affect: normal affect Objective Data Vital Signs Vital Signs: Vital Signs - 24 hr 10/21/24 09:52 10/21/24 13:41 10/21/24 16:03 Temperature 97.8 F Pulse Rate 109 H 75 109 H Respiratory Rate 19 16 18 Blood Pressure 137/94 H 125/91 H 153/81 H Pulse Oximetry 99 100 98 Oxygen Delivery Room Air 10/21/24 16:14 10/21/24 16:34 10/21/24 20:00 Temperature 99.1 F Pulse Rate 87 Respiratory Rate 16 Blood Pressure 130/82 Pulse Oximetry 97 Oxygen Delivery Room Air Room Air 10/21/24 21:31 10/22/24 06:00 Temperature 97.5 F L 96.6 F L Pulse Rate 101 H 83 Respiratory Rate 20 20 Blood Pressure 146/82 H 132/81 Pulse Oximetry 100 97 Oxygen Delivery Intake/Output Intake/Output: Intake & Output 10/19/24 10/20/24 10/21/24 10/22/24 23:59 23:59 23:59 23:59 Intake Total 3230 300 Balance 3230 300 Meds/Results Medications: Active Medications Generic Name Dose Route Start Last Admin Trade Name Freq PRN Reason Stop Dose Admin Acetaminophen 650 mg 10/21/24 15:05 Acetaminophen 325 Mg Tablet PO Q6H PRN Mild Pain (1-3) or Fever Hydrocodone Bitart/Acetaminophen 1 tab 10/21/24 15:05 10/22/24 06:01 Hydrocodone/Acetaminophen (*Crx) 5-325 Mg Tablet PO 1 tab Q6H PRN Administration Pain Rated 4-6 Vancomycin HCl 1,500 mg in 500 mls @ 250 mls/hr 10/22/24 04:00 10/22/24 03:50 Vancomycin 1,500 Mg/Ns 500 Ml IVPB 250 mls/hr Q12H ERICK Administration Loratadine 10 mg 10/22/24 09:00 10/22/24 09:23 Loratadine 10 Mg Tablet PO 10 mg QAM ERICK Administration Morphine Sulfate 4 mg 10/21/24 14:24 10/22/24 09:27 Morphine Sulfate (*Crx) 4 Mg/Ml Inj IV PUSH 4 mg Q2H PRN Administration Pain Rated 7-10 Radiology Results: ITS Impressions Elbow CT 10/21/24 12:38 IMPRESSION: Rim-enhancing fluid collection within the expected region of the olecranon bursa of the left elbow measuring 5.6 cm in greatest dimension. Labs Labs: Laboratory Results - last 24 hr 10/21/24 10/21/24 10/22/24 11:15 15:55 06:21 WBC 12.7 H 11.8 H RBC 4.85 4.51 L Hgb 14.4 13.3 L Hct 42.0 39.4 L MCV 86.6 87.4 MCH 29.7 29.5 MCHC 34.3 33.8 RDW 12.0 12.0 Plt Count 244 205 MPV 7.9 8.0 Immature Gran % (Auto) 1.7 H 2.6 H Neut % (Auto) 77.3 H 73.9 H Lymph % (Auto) 8.4 L 9.9 L [place] % (Auto) 9.0 H 9.7 H Eos % (Auto) 3.2 3.4 Baso % (Auto) 0.4 0.5 Lymph # (Auto) 1.07 1.17 [place] # (Auto) 1.1 H 1.2 H Eos # (Auto) 0.4 H 0.4 H Baso # (Auto) 0.1 0.1 Abs Immat Gran (auto) 0.21 H 0.31 H Absolute Neuts (auto) 9.8 H 8.7 H Absolute Nucleated RBC 0.000 0.000 Nucleated RBC % 0.0 0.0 PT 13.7 INR 1.0 APTT 33.4 Sodium 138 138 Potassium 3.7 4.0 Chloride 98 103 Carbon Dioxide 29 26 Anion Gap 11 9 BUN 9 7 L Creatinine 0.75 0.68 L Estim Creat Clear Calc 133 146 Estimated GFR > 60 > 60 Glucose 104 91 Lactic Acid 1.4 Calcium 9.4 8.9 Total Bilirubin 0.4 AST 29 ALT 39 Alkaline Phosphatase 78 C-Reactive Protein 11.5 H 8.1 H Total Protein 8.2 Albumin 4.3 Synovial Source Lt elbow syn fluid Synovial Color Red Synovial Appearance Cloudy A Synovial RBC TNP Synovial Nuc Cells TNP Synovial Neutrophils 84 H Synovial Lymphocytes 2 Synovial Monocytes 13 Synovial Macrophages 1 Synovial Crystals None seen
[2024-10-22 14:00] VITALS: BP 130/81; PULSE 93; RESP 22; TEMP 36.2; O2SAT 98
--- NOTE | 2024-10-22 14:19 | P.PNIM_ITS ---
Progress Note: A&P Assessment and Plan (1) Sepsis: Qualifiers: Sepsis type: sepsis due to unspecified organism Sepsis acute organ dysfunction status: without acute organ dysfunction Qualified Code(s): A41.9 - Sepsis, unspecified organism Code(s): A41.9 - Sepsis, unspecified organism Status: Acute Assessment and Plan: - meets SIRS criteria: HR greater than 90, WBC greater than 12 - lactic acid: 1.4 - 30 mL/kg = 2.9L, 3L bolus in ED given -> 125 mL/hour x1L - suspected source: Septic elbow/cellulitis - started on vancomycin - blood cultures drawn on 10/2110/22/24: * No longer meeting systemic sepsis criteria. (2) Septic joint of left elbow: Qualifiers: Septic arthritis organism: due to unspecified organism Qualified Code(s): M00.9 - Pyogenic arthritis, unspecified Code(s): M00.9 - Pyogenic arthritis, unspecified Status: Acute Assessment and Plan: - CT elbow, 10/21: Rim-enhancing fluid collection within the expected region of the olecranon bursa of the left elbow measuring 5.6 x 4.3 x 5.4 cm (anterior to posterior x medial to lateral x cranial to caudal dimension). - orthopedics consulted -> repeat aspiration of the left elbow olecranon bursa for new stat Gram stain, culture and fluid analysis. 15 mL withdrawn and patient now reporting improved pain/improved range of motion. - fluid culture from the OSH showed staphylococci, final result pending - fluid culture ordered - started on Ancef, will exchanged to vancomycin - analgesics and antipyretics p.r.n. 10/22/24: * Awaiting cultures * Continue Vanc * Pain control as needed. Time Spent With Patient Time with patient: 15 - 25 minutes Subjective Date/time seen: 10/22/24 14:19 Interval history: This pt was evaluated at the bedside this AM with continued redness and fluctuance of the elbow and pain. Tightness with bending elbow. Ortho aspirated yesterday, remains on Vanc. Awaiting culture results. Pain controlled. Review of Systems Review of Systems: All systems reviewed & are unremarkable except as noted in HPI and below Exam Const: General: comfortable and no acute distress HENMT: Mouth: Yes moist mucous membranes Eyes: General: appearance normal, both eyes and all related structures Neck: Lymphatic: lymphadenopathy not noted Resp: Effort & Inspection: normal respiratory effort Auscultation: clear to auscultation bilaterally Cardio: Rate: regular rate Rhythm: regular rhythm Other: No m,r,g,h GI: Other: Abdomen soft, nondistended, nontender. Normoactive bowel sounds in all quadrants. Skin: Other: Mild erythema to the left elbow, boggy near the olecranon process with moderate edema. Reporting improved ROM. Neuro: Motor exam (neuro): 5/5 motor strength present throughout Sensory Exam: normal sensation Other: A&O x4 Extrem: General: normal exam except as noted and edema Psych: Mental Status: mental status grossly normal Affect: normal affect Objective Data Vital Signs Vital Signs: Vital Signs - 24 hr 10/21/24 16:03 10/21/24 16:14 10/21/24 16:34 Temperature 99.1 F Pulse Rate 109 H 87 Respiratory Rate 18 16 Blood Pressure 153/81 H 130/82 Pulse Oximetry 98 97 Oxygen Delivery Room Air 10/21/24 20:00 10/21/24 21:31 10/22/24 06:00 Temperature 97.5 F L 96.6 F L Pulse Rate 101 H 83 Respiratory Rate 20 20 Blood Pressure 146/82 H 132/81 Pulse Oximetry 100 97 Oxygen Delivery Room Air Intake/Output Intake/Output: Intake & Output 10/19/24 10/20/24 10/21/24 10/22/24 23:59 23:59 23:59 23:59 Intake Total 3230 630 Balance 3230 630 Meds/Results Medications: Active Medications Generic Name Dose Route Start Last Admin Trade Name Freq PRN Reason Stop Dose Admin Acetaminophen 650 mg 10/21/24 15:05 Acetaminophen 325 Mg Tablet PO Q6H PRN Mild Pain (1-3) or Fever Hydrocodone Bitart/Acetaminophen 1 tab 10/21/24 15:05 10/22/24 06:01 Hydrocodone/Acetaminophen (*Crx) 5-325 Mg Tablet PO 1 tab Q6H PRN Administration Pain Rated 4-6 Vancomycin HCl 1,500 mg in 500 mls @ 250 mls/hr 10/22/24 04:00 10/22/24 03:50 Vancomycin 1,500 Mg/Ns 500 Ml IVPB 250 mls/hr Q12H ERICK Administration Loratadine 10 mg 10/22/24 09:00 10/22/24 09:23 Loratadine 10 Mg Tablet PO 10 mg QAM ERICK Administration Morphine Sulfate 4 mg 10/21/24 14:24 10/22/24 09:27 Morphine Sulfate (*Crx) 4 Mg/Ml Inj IV PUSH 4 mg Q2H PRN Administration Pain Rated 7-10 Radiology Results: ITS Impressions Elbow CT 10/21/24 12:38 IMPRESSION: Rim-enhancing fluid collection within the expected region of the olecranon bursa of the left elbow measuring 5.6 cm in greatest dimension. Labs Labs: Laboratory Results - last 24 hr 10/21/24 10/22/24 15:55 06:21 WBC 11.8 H RBC 4.51 L Hgb 13.3 L Hct 39.4 L MCV 87.4 MCH 29.5 MCHC 33.8 RDW 12.0 Plt Count 205 MPV 8.0 Immature Gran % (Auto) 2.6 H Neut % (Auto) 73.9 H Lymph % (Auto) 9.9 L [place] % (Auto) 9.7 H Eos % (Auto) 3.4 Baso % (Auto) 0.5 Lymph # (Auto) 1.17 [place] # (Auto) 1.2 H Eos # (Auto) 0.4 H Baso # (Auto) 0.1 Abs Immat Gran (auto) 0.31 H Absolute Neuts (auto) 8.7 H Absolute Nucleated RBC 0.000 Nucleated RBC % 0.0 Sodium 138 Potassium 4.0 Chloride 103 Carbon Dioxide 26 Anion Gap 9 BUN 7 L Creatinine 0.68 L Estim Creat Clear Calc 146 Estimated GFR > 60 Glucose 91 Calcium 8.9 C-Reactive Protein 8.1 H Synovial Source Lt elbow syn fluid Synovial Color Red Synovial Appearance Cloudy A Synovial RBC TNP Synovial Nuc Cells TNP Synovial Neutrophils 84 H Synovial Lymphocytes 2 Synovial Monocytes 13 Synovial Macrophages 1 Synovial Crystals None seen Quality VTE Prophylaxis VTE prophylaxis: mechanical ordered
--- NOTE | 2024-10-22 16:36 | W.PM.PROC2 ---
Procedure Note - Detailed Date of Procedure 10/22/24 Pre-op Diagnosis bursitis,cellulitis,spetic joint Post-op Diagnosis Same Procedure Performed left elbow bursa aspiration Surgeon Brad Alanis MD Anesthesia Local ( 1% lidocaine plain) Indications left elbow septic bursitis Findings 25 cc of purulent material aspirated Description of Procedure informed consent given. Left elbow prepped with Betadine and alcohol prep solution. Local anesthetic with 1% lidocaine plain. 18 gauge needle used to aspirate to the olecranon bursa from non cellulitic skin area. 25 cc of purulent material aspirated. Sterile bandage applied. Estimated Blood Loss 2 Pathology None sent Complications None Condition Stable Disposition No change [facility] Billing Surgery - Charge Forward: Surgery Billing ()
--- NOTE | 2024-10-22 16:39 | P.PNOP_ITS ---
Progress Note: A&P Assessment and Plan (1) Septic olecranon bursitis of left elbow: Code(s): M71.122 - Other infective bursitis, left elbow Status: Acute Assessment and Plan: reaccumulation of fluid noted throughout the day. Increased pain and stiffness of the elbow. Discussed options. Would like to try reaspiration. 25 cc of fluid aspirated from the bursa. Sterile dressing applied. Still awaiting cu lture results from yesterday. Discussed option for repeat aspiration verses I&D. Will re-evaluate in the morning. Subjective Subjective Date/Time Seen: 10/22/24 16:39 Principal diagnosis: Left elbow septic bursitis Interval history: admitted yesterday with left elbow bursitis. Aspiration done yesterday with 15 cc of purulent fluid. Cultures pending. Reaccumulation of fluid noted today. Review of Systems Constitutional: Constitutional: Denies fever(s) Eyes: Eyes: Denies blurry vision ENT: Reports Normal hearing present Cardiovascular: Cardiovascular: Denies chest pain and Denies dyspnea Respiratory: Respiratory: Denies dyspnea and Denies wheezing Gastrointestinal: Gastrointestinal: Denies abdominal pain Genitourinary: Genitourinary: Denies urinary urgency Musculoskeletal: Musculoskeletal: Reports as per HPI and Denies numbness Integumentary/Breasts: Skin/Breast: Denies changing lesions and Denies sores Neurologic: Reports Normal hearing present, Denies behavioral changes, Denies confusion, Denies numbness and Denies convulsions Psychiatric: Psychiatric: Denies behavioral changes, Denies confusion and Denies hallucinations Endocrine: Endocrine: Denies heat intolerance Hematologic/Lymphatic: Hematologic/Lymphatic: Denies easy bleeding Allergic/Immunologic: Allergic/Immunologic: Denies wheezing Exam Const: General: healthy appearing; No in distress or confusion Orientation/consciousness: oriented to person, oriented to place, oriented to time and No confusion HENMT: Head: normal to inspection Eyes: Conjunctivae: conjunctivae normal Sclera: sclerae normal Neck: Neck: supple Resp: Effort & Inspection: normal respiratory effort and no audible wheezes Cardio: Rate: regular rate Rhythm: regular rhythm Skin: General skin exam: no rashes or lesions noted Neuro: General: oriented to person, oriented to place, oriented to time and No confusion Extrem: Right upper extremity: shoulder/upper arm axillary nerve sensory function normal, normal ROM (FF 130, Abd 120, ER 70, IR T7) and other (RC 5/5, Bicep 5/5, Deltoid 5/5, ER 5/5); no tenderness and no swelling, elbow/forearm normal ROM and other (bicep 5/5, tricep 5/5, pronation 5/5, supination 5/5); no tenderness and no swelling, wrist normal ROM and radial pulse present; no tend erness and Extremity exam: right hand neuromotor exam normal wrist extension normal, thumb opposition normal, thumb IP flexion normal and fingers 2-5 ABduction normal, neurosensory exam normal radial nerve sensory function normal, ulnar nerve sensory function normal, median nerve sensory function normal and digital nerve sensory function normal and vascular exam radial pulse present and normal capillary refill; no tenderness, no swelling and no crepitus Left upper extremity: normal to inspection, shoulder/upper arm inspection abnormal, axillary nerve sensory function normal, normal ROM and other (RC 5/5, Bicep 5/5, Deltoid 5/5, ER 5/5); no tenderness and no swelling, elbow/forearm tenderness of the olecranon and other (resisted wrist flexion), swelling of the olecranon, abnormal ROM pain with active ROM with flexion and with range as follows ( active elbow 5 to 130?, pronation 70?, supination 80?) and other (bicep 5/5, tricep 4/5, pronation 5/5, supination 5/5); no ecchymosis and no crepitus, wrist normal ROM, radial pulse present and other (wrist extension 5/5, wrist flexion4/5); no tenderness and hand neuromotor exam normal Details: wrist extension normal and thumb IP flexion normal, neurosensory exam normal Details: radial nerve sensory function normal, ulnar nerve sensory function normal and median nerve sensory function normal, tendon exam normal Location: of all digits and vascular exam radial pulse present and normal capillary refill; no tenderness Right lower extremity: normal to inspection Left lower extremity: normal to inspection Psych: Affect: normal affect Objective Data Vital Signs Vital Signs: Vital Signs - 24 hr 10/21/24 20:00 10/21/24 21:31 10/22/24 06:00 Temperature 97.5 F L 96.6 F L Pulse Rate 101 H 83 Respiratory Rate 20 20 Blood Pressure 146/82 H 132/81 Pulse Oximetry 100 97 Oxygen Delivery Room Air 10/22/24 09:23 10/22/24 14:00 Temperature 97.2 F L Pulse Rate 93 Respiratory Rate 22 H Blood Pressure 130/81 Pulse Oximetry 98 Oxygen Delivery Room Air Intake/Output Intake/Output: Intake & Output 10/19/24 10/20/24 10/21/24 10/22/24 23:59 23:59 23:59 23:59 Intake Total 3230 1130 Balance 3230 1130 Meds/Results Medications: Active Medications Generic Name Dose Route Start Last Admin Trade Name Freq PRN Reason Stop Dose Admin Acetaminophen 650 mg 10/21/24 15:05 Acetaminophen 325 Mg Tablet PO Q6H PRN Mild Pain (1-3) or Fever Hydrocodone Bitart/Acetaminophen 1 tab 10/21/24 15:05 10/22/24 14:57 Hydrocodone/Acetaminophen (*Crx) 5-325 Mg Tablet PO 1 tab Q6H PRN Administration Pain Rated 4-6 Vancomycin HCl 1,500 mg in 500 mls @ 250 mls/hr 10/22/24 04:00 10/22/24 15:31 Vancomycin 1,500 Mg/Ns 500 Ml IVPB 250 mls/hr Q12H ERICK Administration Loratadine 10 mg 10/22/24 09:00 10/22/24 09:23 Loratadine 10 Mg Tablet PO 10 mg QAM ERICK Administration Morphine Sulfate 4 mg 10/21/24 14:24 10/22/24 15:31 Morphine Sulfate (*Crx) 4 Mg/Ml Inj IV PUSH 4 mg Q2H PRN Administration Pain Rated 7-10 Radiology Results: ITS Impressions Elbow CT 10/21/24 12:38 IMPRESSION: Rim-enhancing fluid collection within the expected region of the olecranon bursa of the left elbow measuring 5.6 cm in greatest dimension. Labs Labs: Laboratory Results - last 24 hr 10/21/24 10/22/24 15:55 06:21 WBC 11.8 H RBC 4.51 L Hgb 13.3 L Hct 39.4 L MCV 87.4 MCH 29.5 MCHC 33.8 RDW 12.0 Plt Count 205 MPV 8.0 Immature Gran % (Auto) 2.6 H Neut % (Auto) 73.9 H Lymph % (Auto) 9.9 L [place] % (Auto) 9.7 H Eos % (Auto) 3.4 Baso % (Auto) 0.5 Lymph # (Auto) 1.17 [place] # (Auto) 1.2 H Eos # (Auto) 0.4 H Baso # (Auto) 0.1 Abs Immat Gran (auto) 0.31 H Absolute Neuts (auto) 8.7 H Absolute Nucleated RBC 0.000 Nucleated RBC % 0.0 Sodium 138 Potassium 4.0 Chloride 103 Carbon Dioxide 26 Anion Gap 9 BUN 7 L Creatinine 0.68 L Estim Creat Clear Calc 146 Estimated GFR > 60 Glucose 91 Calcium 8.9 C-Reactive Protein 8.1 H Synovial Source Lt elbow syn fluid Synovial Color Red Synovial Appearance Cloudy A Synovial RBC TNP Synovial Nuc Cells TNP Synovial Neutrophils 84 H Synovial Lymphocytes 2 Synovial Monocytes 13 Synovial Macrophages 1 Synovial Crystals None seen Office Procedure General Pre-Procedure Pre-procedure care: Consent was obtained, Procedures/risks were explained, Questions were answered, Correct patient identified and Correct side and site confirmed Procedure Procedure Details: Left elbow aspiration Post Procedure Patient tolerated the procedure well?: Tolerated procedure well
[2024-10-22 21:15] VITALS: BP 144/73; PULSE 88; RESP 14; TEMP 36.3; O2SAT 100
[2024-10-22 22:12] VITALS: O2SAT 99
[2024-10-23] MEDS: MORPHINE SULFATE (*CRX) 4 MG/ML INJ IV PUSH (01:05)
[2024-10-23 03:07] LABS: Hematocrit 39.6 % (42.0-52.0); Hemoglobin 13.6 g/dL (14.0-18.0); Immature Granulocyte Percent A 5.4 % (0-0.5); Lymphocytes Absolute Auto 1.19 K/mm3 (0.9-3.2); Mean Corpuscular HGB Conc 34.3 g/dl (32-36); Mean Corpuscular Hemoglobin 29.7 pg (26-34); Mean Corpuscular Volume 86.5 fl (80-100); Nucleated Red Blood Cells Absolute Auto 0.000 K/mm3 (0.0-0.012); Nucleated Red Blood Cells Perc 0.0 % (0.0-0.2); Platelet Count Result 198 k/mm3 (150-375); Red Blood Count 4.58 M/mm3 (4.6-6.20); White Blood Count 10.8 K/mm3 (4.5-10.0)
[2024-10-23] MEDS: HYDROcodone/acetaminophen (*CRX) 5-325 MG TABLET 1 TAB PO (03:09)
[2024-10-23 03:26] LABS: INR 1.0; Prothrombin Time 13.8 Seconds (11.1-14.7)
[2024-10-23 03:27] LABS: Partial Thromboplastin Time 31.6 Seconds (22.3-36.8)
[2024-10-23 03:28] LABS: Alanine Aminotransferase 34 U/L (6-50); Albumin Level 3.7 g/dL (3.5-5.1); Alkaline Phosphatase 67 U/L (38-126); Anion Gap 9 mmol/L (4-12); Aspartate Amino Transferase 28 U/L (17-59); Bilirubin,Total 0.2 mg/dL (0.2-1.3); Blood Urea Nitrogen 8 mg/dL (9-20); Calcium 9.0 mg/dL (8.4-10.2); Carbon Dioxide 25 mmol/L (22-30); Chloride 105 mmol/L (98-107); Estimated CRCL calculation 146 ml/min; Estimated Glomerular Filt Rate > 60; Glucose 117 mg/dL (65-110); Magnesium 2.2 mg/dL (1.6-2.3); Potassium 4.1 mmol/L (3.4-5.0); Sodium 139 mmol/L (137-145); Total Protein 7.0 g/dL (6.3-8.2)
[2024-10-23] MEDS: VANCOMYCIN 2,000 MG/NS 500 ML 2,000 MG/500 ML BAG 250 MG IVPB ×2 (04:03→14:06)
[2024-10-23 05:32] VITALS: BP 128/77; PULSE 74; RESP 13; TEMP 36.6; O2SAT 97
[2024-10-23] MEDS: LORATADINE 10 MG TABLET PO (09:32)
[2024-10-23] MEDS: KETOROLAC 30 MG/ML VIAL (*BKC) IV PUSH (09:32)
--- NOTE | 2024-10-23 14:56 | PM.DS ---
DS: Admitting Diagnosis Discharge Date 10/23/24 Admitting Diagnosis Left elbow swelling DS: Discharge Diagnosis Discharge Diagnosis (1) Sepsis: Qualifiers: Sepsis type: sepsis due to unspecified organism Sepsis acute organ dysfunction status: without acute organ dysfunction Qualified Code(s): A41.9 - Sepsis, unspecified organism Code(s): A41.9 - Sepsis, unspecified organism Status: Acute (2) Septic olecranon bursitis of left elbow: Code(s): M71.122 - Other infective bursitis, left elbow Status: Acute DS: Summary Hospital Course Reason for hospitalization: 38yo healthy male who presents with left elbow swelling. Please see H&P for details. Hospital Course: On admission, HR 109 and WBC 12.7K. Lactic 1.4, CRP 11.5. Elbow CT showed a rim enhancing fluid collection, 5.6 x 4.3 x 5.4 cm, within the expected region of the olecranon bursa of the left elbow. He met sepsis criteria and was given appropriate amount of fluid in the ED. Suspected source septic olecrenon bursitis of left elbow with cellulitis. He was started on vancomycin. BCx 10/21 remain negative. Orthopedics was consulted and patient underwent two left elbow bursa aspiration. Gram stain showing moderate gram positive cocci in clusters and many WBCs. Aspiration culture pending. We did receive the culture from the outside hospital showing their aspiration culture grew Oxacillin sensitive Staph Aureus sensitive also to Bactrim, Clinda. He had clinical improvement with marked improvement int he elbow range of motion. Discussed with ortho with plans for patient to follow up in 1 week. He overall did well and was able to be discharged on 10/23/24. Status at Discharge Cognitive/behavioral status at discharge: stable Time Spent with Patient Time attestation: Total time spent providing and/or coordinating discharge services: 34 minutes Time spent: Greater than 30 minutes Exam Narrative: AF 97.9 128/77 74 16 97% ra Gen - NARD Chest - CTA bilaterally, nml RR CV - RRR S1/S2 Abd - Soft, NT/ND, Positive BS Ext - No pedal edema. Very mild residual left hand swelling. Left elbow edema still present but with minimal tenderness. Able to extend left elbow almost completely. Psych - Nml mood and affect Skin - Warm and dry DS: Data Data Completed and Pending Labs on day of discharge: Labs from last 24 hours 10/23/24 03:01 WBC 10.8 H RBC 4.58 L Hgb 13.6 L Hct 39.6 L MCV 86.5 MCH 29.7 MCHC 34.3 RDW 12.0 Plt Count 198 MPV 7.5 Immature Gran % (Auto) 5.4 H Neut % (Auto) 68.7 Lymph % (Auto) 11.0 L [place] % (Auto) 9.4 H Eos % (Auto) 4.7 H Baso % (Auto) 0.8 Lymph # (Auto) 1.19 [place] # (Auto) 1.0 H Eos # (Auto) 0.5 H Baso # (Auto) 0.1 Abs Immat Gran (auto) 0.58 H Absolute Neuts (auto) 7.5 H Absolute Nucleated RBC 0.000 Nucleated RBC % 0.0 PT 13.8 INR 1.0 APTT 31.6 Sodium 139 Potassium 4.1 Chloride 105 Carbon Dioxide 25 Anion Gap 9 BUN 8 L Creatinine 0.68 L Estim Creat Clear Calc 146 Estimated GFR > 60 Glucose 117 H Calcium 9.0 Magnesium 2.2 Total Bilirubin 0.2 AST 28 ALT 34 Alkaline Phosphatase 67 Total Protein 7.0 Albumin 3.7 Vancomycin Trough < 5.0 L Preliminary micro results at discharge 10/21/24 15:55 Aerobic Culture - Preliminary Elbow Left 10/21/24 12:21 Blood Culture - Preliminary Blood 10/21/24 11:15 Blood Culture - Preliminary Blood Discharge Plan Discharge Attending physician on discharge: Lance Gorman Consulting providers: María Elena Rich Discharging Clinician: Lance Gorman Anticipated Discharge Date/Time: 10/23/24 15:08 Patient Disposition: Home Activity: as tolerated Diet: regular Discharge Instructions: Resume Clindamycin Please complete your antibiotic course even if you are starting to feel well. Contact your doctor or call 911 and come to the Emergency Room if you have fevers, increasing fluid collection in the left elbow region or other worrisome symptoms. Follow-up with your primary care provider in 1-2 weeks. Please call for appointment. Follow-up with orthopedics in 1 week. Please call for an appointment. Thank you for using [facility] for your health care needs. Patient Instructions: Antibiotic Form Patient Language: [place] Stand Alone Forms: General Discharge Information Follow-up/Referrals: Brad Alanis MD [Physician] - 1 Week PHYSICIAN NOT ON STAFF,NONSTAFF [Primary Care Provider] - Call for Appointment Discharge Medications: Continued dextroamphetamine-amphetamine 20 mg tablet 20 mg PO DAILY cetirizine 10 mg tablet 10 mg PO DAILY Changed clindamycin HCl 150 mg capsule 300 mg PO Q6H 68 Days Qty: 68 0RF Date of admission: 10/21/24 14:25 Primary Care Provider: PHYSICIAN NOT ON STAFF,NONSTAFF Admitting Provider: Lnog Sullivan Attending physician on admission: Long Sullivan Condition: Stable Hospitalist MIPS Heart Failure (Exclusion) Patient has history of Heart Transplant or Left Ventricular Assistive Device?: No IF YES, STOP HERE Heart Failure (Qualifier) Patient has current or prior documentation of LVEF less than or equal to 40%, or mod/servere depressed LVSF?: No IF NO, STOP HERE
--- NOTE | 2024-10-23 15:18 | W.PM.PROC2 ---
Procedure Note - Detailed Date of Procedure 10/23/24 Pre-op Diagnosis bursitis,cellulitis, Left elbow septic bursitis Post-op Diagnosis Same Procedure Performed left elbow bursa aspiration Surgeon Brad Alanis MD Anesthesia Local ( 1% lidocaine plain) Indications left elbow septic bursitis Findings 9 cc of purulent material aspirated Description of Procedure informed consent given. Left elbow prepped with Betadine and alcohol prep solution. Local anesthetic with 1% lidocaine plain. 18 gauge needle used to aspirate to the olecranon bursa from non cellulitic skin area. 9 cc of purulent material aspirated. sterile saline flushed through the bursa and aspirated. Sterile bandage applied. Estimated Blood Loss 2 Packing No Pathology None sent Complications None Condition Stable Disposition No change [facility] Billing Surgery - Charge Forward: Surgery Billing ()
--- NOTE | 2024-10-23 15:20 | PM.PNORT ---
Progress Note: A&P Assessment and Plan (1) Septic olecranon bursitis of left elbow: Code(s): M71.122 - Other infective bursitis, left elbow Status: Acute Assessment and Plan: overall improved but still some fluctuance and fluid collection in the bursa. Has not worsened and is improved enough to not warrant surgical treatment. Would like to try reaspiration. 9 cc of fluid aspirated from the bursa. Sterile dressing applied. Still awaiting culture results from October 21. culture from outside hospital with oxacillin sensitive Staph aureus. Discussed option for repeat aspiration. Plan Plan for reaspiration of the left elbow. Cultures from outside hospital showing sensitive Staph. Okay to discharge home with oral antibiotics. Follow up next week with Orthopedics. Subjective Subjective Date/Time Seen: 10/23/24 15:20 Principal diagnosis: Left elbow septic bursitis Interval history: left elbow bursitis. Aspiration done yesterday with 25 cc of purulent fluid, 2 days ago with 15 cc of fluid. Cultures pending. Reaccumulation of fluid noted today. Review of Systems Constitutional: Constitutional: Denies fever(s) Eyes: Eyes: Denies blurry vision ENT: Reports Normal hearing present Cardiovascular: Cardiovascular: Denies chest pain and Denies dyspnea Respiratory: Respiratory: Denies dyspnea and Denies wheezing Gastrointestinal: Gastrointestinal: Denies abdominal pain Genitourinary: Genitourinary: Denies urinary urgency Musculoskeletal: Musculoskeletal: Reports as per HPI and Denies numbness Integumentary/Breasts: Skin/Breast: Denies changing lesions and Denies sores Neurologic: Reports Normal hearing present, Denies behavioral changes, Denies confusion, Denies numbness and Denies convulsions Psychiatric: Psychiatric: Denies behavioral changes, Denies confusion and Denies hallucinations Endocrine: Endocrine: Denies heat intolerance Hematologic/Lymphatic: Hematologic/Lymphatic: Denies easy bleeding Allergic/Immunologic: Allergic/Immunologic: Denies wheezing Exam Const: General: healthy appearing; No in distress or confusion Orientation/consciousness: oriented to person, oriented to place, oriented to time and No confusion HENMT: Head: normal to inspection Eyes: Conjunctivae: conjunctivae normal Sclera: sclerae normal Neck: Neck: supple Resp: Effort & Inspection: normal respiratory effort and no audible wheezes Cardio: Rate: regular rate Rhythm: regular rhythm Skin: General skin exam: no rashes or lesions noted Neuro: General: oriented to person, oriented to place, oriented to time and No confusion Extrem: Right upper extremity: shoulder/upper arm axillary nerve sensory function normal, normal ROM (FF 130, Abd 120, ER 70, IR T7) and other (RC 5/5, Bicep 5/5, Deltoid 5/5, ER 5/5); no tenderness and no swelling, elbow/forearm normal ROM and other (bicep 5/5, tricep 5/5, pronation 5/5, supination 5/5); no tenderness and no swelling, wrist normal ROM and radial pulse present; no tenderness and Extremity exam: right hand neuromotor exam normal wrist extension normal, thumb opposition normal, thumb IP flexion normal and fingers 2-5 ABduction normal, neurosensory exam normal radial nerve sensory function normal, ulnar nerve sensory function normal, median nerve sensory function normal and digital nerve sensory function normal and vascular exam radial pulse present and normal capillary refill; no tenderness, no swelling and no crepitus Left upper extremity: shoulder/upper arm axillary nerve sensory function normal, normal ROM and other (RC 5/5, Bicep 5/5, Deltoid 5/5, ER 5/5); no tenderness and no swelling, elbow/forearm abnormal to inspection erythema ( posterior elbow) and olecranon swelling, tenderness of the olecranon and other (resisted wrist flexion), swelling of the olecranon, abnormal ROM pain with active ROM with flexion and with range as follows ( active elbow 5 to 130?, pronation 70?, supination 80?) and other (bicep 5/5, tricep 4/5, pronation 5/5, supination 5/5); no ecchymosis and no crepitus, wrist normal ROM, radial pulse present and other (wrist extension 5/5, wrist flexion4/5); no tenderness and hand neuromotor exam normal Details: wrist extension normal and thumb IP flexion normal, neurosensory exam normal Details: radial nerve sensory function normal, ulnar nerve sensory function normal and median nerve sensory function normal, tendon exam normal Location: of all digits and vascular exam radial pulse present and normal capillary refill; no tenderness Right lower extremity: normal to inspection Left lower extremity: normal to inspection Psych: Affect: normal affect Objective Data Vital Signs Vital Signs: Vital Signs - 24 hr 10/22/24 21:15 10/22/24 22:12 10/23/24 05:32 Temperature 97.3 F L 97.9 F Pulse Rate 88 74 Respiratory Rate 14 13 Blood Pressure 144/73 H 128/77 Pulse Oximetry 100 99 97 Oxygen Delivery Room Air 10/23/24 09:32 Temperature Pulse Rate Respiratory Rate Blood Pressure Pulse Oximetry Oxygen Delivery Room Air Intake/Output Intake/Output: Intake & Output 10/20/24 10/21/24 10/22/24 10/23/24 23:59 23:59 23:59 23:59 Intake Total 3230 1920 1480 Balance 3230 1920 1480 Meds/Results Medications: Active Medications Generic Name Dose Route Start Last Admin Trade Name Freq PRN Reason Stop Dose Admin Acetaminophen 650 mg 10/21/24 15:05 Acetaminophen 325 Mg Tablet PO Q6H PRN Mild Pain (1-3) or Fever Hydrocodone Bitart/Acetaminophen 1 tab 10/21/24 15:05 10/23/24 03:09 Hydrocodone/Acetaminophen (*Crx) 5-325 Mg Tablet PO 1 tab Q6H PRN Administration Pain Rated 4-6 Vancomycin HCl 2,000 mg in 500 mls @ 250 mls/hr 10/23/24 04:00 10/23/24 14:06 Vancomycin 2,000 Mg/Ns 500 Ml IVPB 250 mls/hr Q8H ERICK Administration Ibuprofen 400 mg/ Sodium 104 mls @ 208 mls/hr 10/23/24 14:00 10/23/24 15:05 Chloride IVPB Not Given Q6H ERICK Loratadine 10 mg 10/22/24 09:00 10/23/24 09:32 Loratadine 10 Mg Tablet PO 10 mg QAM ERICK Administration Morphine Sulfate 4 mg 10/21/24 14:24 10/23/24 01:05 Morphine Sulfate (*Crx) 4 Mg/Ml Inj IV PUSH 4 mg Q2H PRN Administration Pain Rated 7-10 Radiology Results: ITS Impressions Elbow CT 10/21/24 12:38 IMPRESSION: Rim-enhancing fluid collection within the expected region of the olecranon bursa of the left elbow measuring 5.6 cm in greatest dimension. Labs Labs: Laboratory Results - last 24 hr 10/23/24 03:01 WBC 10.8 H RBC 4.58 L Hgb 13.6 L Hct 39.6 L MCV 86.5 MCH 29.7 MCHC 34.3 RDW 12.0 Plt Count 198 MPV 7.5 Immature Gran % (Auto) 5.4 H Neut % (Auto) 68.7 Lymph % (Auto) 11.0 L [place] % (Auto) 9.4 H Eos % (Auto) 4.7 H Baso % (Auto) 0.8 Lymph # (Auto) 1.19 [place] # (Auto) 1.0 H Eos # (Auto) 0.5 H Baso # (Auto) 0.1 Abs Immat Gran (auto) 0.58 H Absolute Neuts (auto) 7.5 H Absolute Nucleated RBC 0.000 Nucleated RBC % 0.0 PT 13.8 INR 1.0 APTT 31.6 Sodium 139 Potassium 4.1 Chloride 105 Carbon Dioxide 25 Anion Gap 9 BUN 8 L Creatinine 0.68 L Estim Creat Clear Calc 146 Estimated GFR > 60 Glucose 117 H Calcium 9.0 Magnesium 2.2 Total Bilirubin 0.2 AST 28 ALT 34 Alkaline Phosphatase 67 Total Protein 7.0 Albumin 3.7 Vancomycin Trough < 5.0 L
--- NOTE | 2024-10-28 10:15 | PC.NURSE ---
Blood cx show no growth. Dr. Sherif rodriguez.
== END 2024-10-23 16:50 | disposition home or self-care (01) | DRG 872 ==
LOC: ANHED 14:24 → ANH3MEDSUR 15:26
PROVIDERS: Nurse Practitioner Adult Health; Nurse Practitioner Family; Student in an Organized Health Care Education/Training Program; Admitting Provider Family Medicine; Emergency Provider Registered Nurse; Visit Provider Internal Medicine
DX: A41.9 Sepsis, unspecified organism (principal); M00.9 Pyogenic arthritis, unspecified; L03.114 Cellulitis of left upper limb; M71.122 Other infective bursitis, left elbow; F90.9 Attention-deficit hyperactivity disorder, unspecified type
CPT/HCPCS: 20605; 36415; 73201; 80048; 80053; 80202; 83605; 83735; 85025; 85610; 85730; 86140; 87040; 87070; 87075; 87205; 89051; 89060; 93005; 96361; 96365; 96375; 96376; 99285; A9270; J0690; J1885; J2270; J3373; J7030; Q9967